=== PATIENT | female | born 1975 | race Caucasian/White ===

== ENCOUNTER 2018-04-23 18:10 | Emergency (ER) | payer OTHER, MEDICAID ==
[~2018-04-23] VITALS: Ht 157.5 cm; Wt 73.5 kg
[~2018-04-23 18:10] MED LIST: CELEXA20 MG PO; CENTRUM SILVER1 EAC2 PO; CLARITIN10 M2 PO; CLARITIN10 MG PO; DEMEROL50 MG PO; FLEXERIL PO; IBUPROFEN 800800 M1 PO; LISINOPRIL10 MG PO; LOPID600 MG PO; PERCOCET 5-3251 EACH PO; PERCOCET PO; TRAMADOL 50 MG50 MG PO; ZOFRAN4 MG PO
[2018-04-23] MEDS ORDERED: IBU800 MG PO (20:12)
[2018-04-23 20:20] VITALS: BP 140/95
== END 2018-04-23 20:20 | disposition home or self-care (01) ==
LOC: M.ERS 18:10
DX: S63.502A Unspecified sprain of left wrist, initial encounter (principal); S00.33XA Contusion of nose, initial encounter; I10 Essential (primary) hypertension; F17.210 Nicotine dependence, cigarettes, uncomplicated; Z88.6 Allergy status to analgesic agent; Z88.0 Allergy status to penicillin; Z88.5 Allergy status to narcotic agent; W10.8XXA Fall (on) (from) other stairs and steps, initial encounter; Y93.89 Activity, other specified; Y92.89 Other specified places as the place of occurrence of the external cause; Y99.8 Other external cause status

== ENCOUNTER 2018-06-20 20:45 | Emergency (ER) | payer OTHER, MEDICAID ==
[~2018-06-20] VITALS: Ht 170.2 cm; Wt 68.0 kg
[~2018-06-20 20:45] MED LIST changes: +IBU800 MG PO
[2018-06-20] MEDS ORDERED: LISINOPRIL20 MG (20:55)
[2018-06-20] MEDS ORDERED: PERCOCET PO (21:50)
[2018-06-20] MEDS ORDERED: BACTRIM DS TAB1 EACH PO (21:50)
[2018-06-20 22:11] VITALS: BP 128/82
== END 2018-06-20 22:12 | disposition home or self-care (01) ==
LOC: M.ERS 20:45
DX: S93.602A Unspecified sprain of left foot, initial encounter (principal); S80.12XA Contusion of left lower leg, initial encounter; I10 Essential (primary) hypertension; Z98.890 Other specified postprocedural states; F17.210 Nicotine dependence, cigarettes, uncomplicated; Z88.0 Allergy status to penicillin; Z88.5 Allergy status to narcotic agent; Z88.8 Allergy status to other drugs, medicaments and biological substances; W22.8XXA Striking against or struck by other objects, initial encounter; Y93.89 Activity, other specified; Y92.89 Other specified places as the place of occurrence of the external cause; Y99.8 Other external cause status

== ENCOUNTER 2018-06-27 20:21 | Emergency (ER) | payer OTHER ==
[~2018-06-27] VITALS: Ht 157.5 cm; Wt 65.8 kg
[~2018-06-27 20:21] MED LIST changes: +BACTRIM DS TAB1 EACH PO; +LISINOPRIL20 MG
[2018-06-27] MEDS ORDERED: BACTROBAN CREAM30 G1 TOP (20:52)
[2018-06-27] MEDS ORDERED: CLEOCIN HCL150 MG PO (20:52)
[2018-06-27] MEDS ORDERED: DIFLUCAN150 M1 PO (20:54)
[2018-06-27 20:58] VITALS: BP 119/78
== END 2018-06-27 21:04 | disposition home or self-care (01) ==
LOC: M.ERS 20:21
DX: L03.116 Cellulitis of left lower limb (principal); I10 Essential (primary) hypertension; F17.210 Nicotine dependence, cigarettes, uncomplicated; Z98.890 Other specified postprocedural states; Z88.5 Allergy status to narcotic agent; Z88.6 Allergy status to analgesic agent; Z88.0 Allergy status to penicillin

== ENCOUNTER 2019-01-17 13:05 | Emergency (ER) | payer OTHER, MEDICAID ==
[~2019-01-17] VITALS: Ht 157.5 cm; Wt 74.8 kg
[~2019-01-17 13:05] MED LIST changes: +BACTROBAN CREAM30 G1 TOP; +CLEOCIN HCL150 MG PO; +DIFLUCAN150 M1 PO
[2019-01-17 15:15] VITALS: BP 129/92
== END 2019-01-17 15:16 | disposition home or self-care (01) ==
LOC: M.ERS 13:05
DX: S80.211A Abrasion, right knee, initial encounter (principal); M25.531 Pain in right wrist; F17.210 Nicotine dependence, cigarettes, uncomplicated; I10 Essential (primary) hypertension; Z88.5 Allergy status to narcotic agent; Z88.4 Allergy status to anesthetic agent; Z88.8 Allergy status to other drugs, medicaments and biological substances; Z88.0 Allergy status to penicillin; Z98.890 Other specified postprocedural states; W01.0XXA Fall on same level from slipping, tripping and stumbling without subsequent striking against object, initial encounter; Y92.89 Other specified places as the place of occurrence of the external cause; Y93.89 Activity, other specified; Y99.8 Other external cause status

== ENCOUNTER 2019-08-10 23:42 | Emergency (ER) | payer OTHER, MEDICAID ==
[~2019-08-10] VITALS: Ht 157.5 cm; Wt 63.5 kg
[2019-08-11] MEDS ORDERED: ACETAMINOPHEN-1 EAC1 PO (00:33)
[2019-08-11] MEDS ORDERED: PERCOCET 7.5-31 EACH PO (00:42)
[2019-08-11 01:15] VITALS: BP 110/79
== END 2019-08-11 01:16 | disposition home or self-care (01) ==
LOC: M.ERS 23:42
DX: S69.82XA Other specified injuries of left wrist, hand and finger(s), initial encounter (principal); I10 Essential (primary) hypertension; F17.210 Nicotine dependence, cigarettes, uncomplicated; Z98.51 Tubal ligation status; Z88.5 Allergy status to narcotic agent; Z98.890 Other specified postprocedural states; Z88.6 Allergy status to analgesic agent; Z88.0 Allergy status to penicillin; W10.8XXA Fall (on) (from) other stairs and steps, initial encounter; Y93.89 Activity, other specified; Y92.89 Other specified places as the place of occurrence of the external cause; Y99.8 Other external cause status

== ENCOUNTER 2021-07-20 03:01 | Emergency (ER) | payer MEDICAID ==
[~2021-07-20] VITALS: Ht 157.5 cm; Wt 77.1 kg
[~2021-07-20 03:01] MED LIST changes: +ACETAMINOPHEN-1 EAC1 PO; +PERCOCET 7.5-31 EACH PO
[2021-07-20] MEDS ORDERED: LISINOPRIL10 MG PO (03:18)
[2021-07-20 03:28] LABS: URINE BILIRUBIN NEGATIVE (Negative); URINE BLOOD TRACE (Negative); URINE CLARITY CLEAR; URINE COLOR YELLOW; URINE GLUCOSE-RANDOM NEGATIVE (Negative); URINE KETONES NEGATIVE (Negative); URINE LEUKOCYTES-REFLEX NEGATIVE (Negative); URINE NITRITE-REFLEX NEGATIVE (Negative); URINE PROTEIN TRACE (Negative); URINE SPECIFIC GRAVITY >= 1.030 (1.005-1.030); URINE UROBILINOGEN 0.2 E.U./dl (0.2-1.0)
[2021-07-20 03:34] LABS: AMP/METHAMP POSITIVE (Negative); BARBITURATES Negative (Negative); BENZODIAZEPINES Negative (Negative); COCAINE Negative (Negative); METHADONE Negative (Negative); OPIATES Negative (Negative); PCP Negative (Negative); THC Negative (Negative)
[2021-07-20] MEDS ORDERED: FLAGYL500 M1 PO (05:27)
[2021-07-20 05:32] VITALS: BP 155/99
[2021-07-23 10:08] LABS: HEPATITIS B SURFACE AG Negative (Negative)
== END 2021-07-20 05:32 | disposition home or self-care (01) ==
LOC: M.ERS 03:01
PROVIDERS: Emergency Medicine
DX: N76.0 Acute vaginitis (principal); B96.89 Other specified bacterial agents as the cause of diseases classified elsewhere; I10 Essential (primary) hypertension; F17.210 Nicotine dependence, cigarettes, uncomplicated; Z98.890 Other specified postprocedural states; Z79.899 Other long term (current) drug therapy; Z88.0 Allergy status to penicillin; Z88.5 Allergy status to narcotic agent; Z88.6 Allergy status to analgesic agent

== ENCOUNTER 2021-08-26 10:36 | Emergency (ER) | payer MEDICAID ==
[~2021-08-26] VITALS: Ht 157.5 cm; Wt 77.1 kg
[~2021-08-26 10:36] MED LIST changes: +FLAGYL500 M1 PO
[2021-08-26] MEDS ORDERED: FLEXERIL PO (15:23)
== END 2021-08-26 11:39 | disposition left against medical advice (07) ==
LOC: M.ERS 10:36
DX: S00.31XA Abrasion of nose, initial encounter (principal); R07.89 Other chest pain; M54.2 Cervicalgia; R07.81 Pleurodynia; R05.9 Cough, unspecified; R09.89 Other specified symptoms and signs involving the circulatory and respiratory systems; N89.8 Other specified noninflammatory disorders of vagina; I10 Essential (primary) hypertension; F17.210 Nicotine dependence, cigarettes, uncomplicated; Z98.890 Other specified postprocedural states; Z98.51 Tubal ligation status; Z79.899 Other long term (current) drug therapy; Z88.5 Allergy status to narcotic agent; Z88.8 Allergy status to other drugs, medicaments and biological substances; Z88.6 Allergy status to analgesic agent; Z88.0 Allergy status to penicillin; Y04.2XXA Assault by strike against or bumped into by another person, initial encounter; Y93.89 Activity, other specified; Y92.89 Other specified places as the place of occurrence of the external cause; Y99.8 Other external cause status